=== PATIENT | female | born 1995 | race Caucasian/White ===

== ENCOUNTER 2023-01-09 17:13 | Emergency (ER) | payer MEDICARE, MEDICAID ==
[~2023-01-09] VITALS: Ht 157.5 cm; Wt 60.9 kg
--- NOTE | 2023-01-09 17:57 | NUR ---
CALLED [facility] TO FILE REPORT FOR THE CASE ,DETIALS WERE PROVIDED TO [facility] AT [id number] .MANAGER OF [employer] WILL CONTACT US WITH CASE NO .
[2023-01-09] MEDS ORDERED: azithromycin 250mg tablet PO ONE ×3 (19:10)
[2023-01-09] MEDS ORDERED: CefTRIAXone 500MG IM Kit w/LIDOcaine IM ONE (19:10)
[2023-01-09] MEDS ORDERED: dicyclomine 10 MG capsule PO ONE ×2 (20:55)
[2023-01-09 21:20] LABS: URINE HCG NEGATIVE (NEG)
[2023-01-09 21:32] LABS: URINE AMPHETAMINE SCREEN NEGATIVE (Neg); URINE BARBITUATE SCREEN NEGATIVE (Neg); URINE BENZODIAZEPINES SCREEN NEGATIVE (Neg); URINE COCAINE SCREEN NEGATIVE (Neg); URINE METHADONE SCREEN NEGATIVE (Neg); URINE OPIATE SCREEN NEGATIVE (Neg); URINE PHENCYCLIDINE SCREEN NEGATIVE (Neg)
--- NOTE | 2023-01-09 23:03 | NUR ---
STEVE Waldron completed, sti meds per MD order. Pt has IUD and declines Control. [facility] Advocate Aleshia at Bedside throughout exam. Pt given One time dose for abd pain control. Pt verbalizes understanding of DC instructions. Snack and drink provided and shower declined. Case # [id number].
[2023-01-09 23:06] VITALS: BP 135/101
== END 2023-01-09 23:09 | disposition home or self-care (01) ==
LOC: EEVIPCON 17:14 → ER 17:14
DX: T76.21XA Adult sexual abuse, suspected, initial encounter (principal); R10.9 Unspecified abdominal pain; F17.200 Nicotine dependence, unspecified, uncomplicated; G43.909 Migraine, unspecified, not intractable, without status migrainosus; Z56.0 Unemployment, unspecified; Z88.1 Allergy status to other antibiotic agents
CPT/HCPCS: 36415; 80305; 80320; 81025; 96372; 99284; J0696

== ENCOUNTER 2023-09-28 14:56 | Emergency (ER) | payer MEDICARE, MEDICAID ==
[~2023-09-28] VITALS: Ht 154.9 cm; Wt 69.9 kg
[2023-09-28 15:21] VITALS: O2SAT 100
[2023-09-28 16:08] VITALS: BP 133/96; PULSE 85
[2023-09-28 16:32] LABS: BASOPHILS % (AUTO) 0.2 % (0-1); EOSINOPHILS % (AUTO) 0.2 % (0-6); HEMOGLOBIN 14.8 g/dl (12.0-16.0); LYMPHOCYTES # (AUTO) 1.4 X10'3 (1.1-4.8); LYMPHOCYTES % (AUTO) 12.3 % (21-51); MEAN CORPUSCULAR HEMOGLOBIN 30.7 PG (27.0-31.0); MEAN CORPUSCULAR HGB CONC 34.4 g/dL (33.0-36.5); MEAN CORPUSCULAR VOLUME 89.3 FL (78-98); MEAN PLATELET VOLUME 8.8 FL (7.4-10.4); MONOCYTES # (AUTO) 1.4 X10'3 (0-0.9); MONOCYTES % (AUTO) 12.8 % (2-12); NEUTROPHILS # (AUTO) 8.4 X10'3 (1.8-7.7); NEUTROPHILS % (AUTO) 74.5 % (42-75); PLATELET COUNT 170 X10'3 (140-440); RED BLOOD COUNT 4.82 X10'6 (4.20-5.60); RED CELL DISTRIBUTION WIDTH 12.1 % (11.5-14.5); WHITE BLOOD COUNT 11.3 X10'3 (4.5-11.0)
[2023-09-28 16:41] LABS: ALANINE AMINOTRANSFERASE 16 U/L (12-78); ALBUMIN/GLOBULIN RATIO 0.6 (1.1-1.5); ALKALINE PHOSPHATASE 84 IU/L (46-116); ANION GAP 9 (8-16); ASPARTATE AMINO TRANSFERASE 20 U/L (10-37); BILIRUBIN,TOTAL 0.4 MG/DL (0.1-1.0); BLOOD UREA NITROGEN 11 MG/DL (7-18); BUN/CREATININE RATIO 12.5 (10.0-20.0); CALCIUM 8.5 MG/DL (8.5-10.1); CHLORIDE 97 MMOL/L (99-107); CREATININE 0.88 MG/DL (0.40-0.90); GLUCOSE 97 MG/DL (70-104); LIPASE 11 U/L (16-77); POTASSIUM 3.2 MMOL/L (3.5-5.1); SODIUM 133 MMOL/L (135-145); TOTAL CARBON DIOXIDE 26.6 MMOL/L (24-32); eCRCL 71 ML/MIN; eGFR 75 ML/MIN
[2023-09-28 17:02] LABS: URINE HCG NEGATIVE (NEG)
[2023-09-28 17:03] LABS: BILIRUBIN,URINE NEGATIVE (Neg); CLARITY,URINE CLOUDY (Clear); COLOR,URINE YELLOW (Yellow); GLUCOSE, URINE NEGATIVE (Neg); KETONES,URINE 15 mg/dl (Neg); LEUKOCYTE ESTERASE ,URINE TRACE (Neg); NITRITES, URINE POSITIVE (Neg); OCCULT BLOOD,URINE MODERATE (Neg); PROTEIN,URINE >=300 mg/dl (Neg)
[2023-09-28 17:08] LABS: UA COLLECTION TYPE VOIDED
[2023-09-28 17:13] LABS: SQUAMOUS EPITHELIAL CELL,UR MODERATE /LPF (FEW); WBC,URINE TNTC /HPF (0-4)
[2023-09-28 17:14] LABS: BACTERIA,URINE 3+ /HPF (Neg); RBC,URINE 0-2 /HPF (0-2); WBC CLUMPS,URINE MANY /HPF (NEGATIVE)
[2023-09-28 19:53] VITALS: TEMP 99.6
[2023-09-28] MEDS ORDERED: CefTRIAXone 1000mg IM Kit (w/lidocaine diluent) IM ONE (22:10)
[2023-09-28] MEDS ORDERED: levoFLOXACIN 250mg tablet PO ONE (22:10)
[2023-09-28] MEDS ORDERED: ondansetron 4mg rapidly disintigrating tab PO ONE (22:10)
[2023-09-28] MEDS ORDERED: LEVO-65 PO (22:11)
[2023-09-28] MEDS ORDERED: ONDA8TAB13 PO (22:11)
[2023-09-28] MEDS ORDERED: acetaminophen 325mg tablet PO ONE (22:15)
[2023-09-28 22:45] VITALS: RESP 16
== END 2023-09-28 22:55 | disposition home or self-care (01) ==
LOC: ER 14:57
DX: N10 Acute pyelonephritis (principal); H66.93 Otitis media, unspecified, bilateral; G43.909 Migraine, unspecified, not intractable, without status migrainosus; F12.90 Cannabis use, unspecified, uncomplicated; Z88.1 Allergy status to other antibiotic agents
CPT/HCPCS: 36415; 80053; 81001; 81025; 83690; 85025; 87077; 87088; 87186; 96372; 99284; J0696

== ENCOUNTER 2025-06-20 17:51 | Emergency (ER) | payer MEDICARE, MEDICAID ==
[~2025-06-20] VITALS: Ht 154.9 cm; Wt 59.1 kg
[~2025-06-20 17:51] MED LIST: ONDA-245 PO
[2025-06-20 17:56] VITALS: BP 168/69; PULSE 73; RESP 15; TEMP 98.1; O2SAT 100
[2025-06-20 19:29] LABS: URINE HCG NEGATIVE (NEG)
[2025-06-20 19:32] LABS: LEUKOCYTE ESTERASE ,URINE NEGATIVE (Neg); NITRITES, URINE NEGATIVE (Neg); OCCULT BLOOD,URINE NEGATIVE (Neg)
[2025-06-20 19:34] LABS: UA COLLECTION TYPE CLN CATCH MIDSTREAM
[2025-06-20 19:37] LABS: MEAN PLATELET VOLUME 8.9 FL (7.4-10.4); RED CELL DISTRIBUTION WIDTH 12.1 % (11.5-14.5)
[2025-06-20 19:47] LABS: CREATININE 0.84 MG/DL (0.40-0.90); TOTAL CARBON DIOXIDE 28.1 MMOL/L (24-32); eCRCL 73 ML/MIN; eGFR 79 ML/MIN
[2025-06-20] MEDS ORDERED: PANT-47 PO (20:36)
--- NOTE | 2025-06-20 20:37 | Physician Documentation ---
History of Present Illness ~ Chief Complaint: Abdominal Pain w/vomiting Stated Complaint: VOMITING Time Seen by : 20:26 Primary Medical Doctor: Bijan Eagle HPI Patient presents to the emergency room with chronic right-sided abdominal pain. She states she has had multiple investigations and imaging performed including ultrasound. She also has chronic nausea. She states Zofran has previously worked but she ran out. Bowel movements and urination reported to be normal Medication Reconciliation Allergies: Coded Allergies: amoxicillin (Verified Allergy, Unknown, 09/28/23) Uncoded Allergies: AMOXICILLAN (Allergy, Unknown, 05/10/14) Scheduled Ondansetron 8mg ODT (Ondansetron Odt), 1 TAB PO Q6H Past Medical History Past Medical History: Migraine Past Surgical History: no surgical history Alcohol Use: Other Drug Use: marijuana Lives with: Family Lives In: Home Occupation: unemployed Review of Systems ROS All review of systems negative except as per HPI Physical Exam Vital Signs: Temperature: 98.1, Heart Rate: 73, Respiratory Rate: 15, BP: 16 8/69, Pulse Oximetry: 100, Weight: 59.090 Oxygen Flow Rate: 0 Physical Exam General: Patient is awake, alert, oriented x4 in no acute distress and well appearing.~ Head: Normocephalic and atraumatic. Eyes: Conjunctival normal. EOMI. PERRL. ENT: Mucous membranes moist. Neck: Supple, trachea is midline. Chest: Clear to auscultation bilaterally without rales, rhonchi, or wheezes. There is no accessory muscle use or retractions. Cardiac: RRR without murmurs, gallops, or rubs. Abd: Soft, nondistended, nontender, with normoactive bowel sounds. No guarding, rebound, or rigidity. Progress Results/Orders Results/Orders Completed Orders - GRZEGORZ SHARPE MD Urinalysis, Cult If Indicated (06/20/25 19:14) Hcg, Ur Ql (06/20/25 19:14) Cbc/Diff (06/20/25 19:14) BMP (06/20/25 19:14) Lipase (06/20/25 19:14) CMP (06/20/25 19:14) Vital Signs 06/20/25 17:56 Temp 98.1 Pulse 73 Resp 15 B/P (MAP) 168/69 Pulse Ox 100 O2 Flow Rate 0 Laboratory Tests Test 06/20/25 18:00 06/20/25 19:21 Urine Specimen Description Cln catch midstream Urine Color Yellow Urine Clarity Clear Urine pH 6.5 Urine Specific Bertha 1.020 Urine Protein Negative Urine Glucose (UA) Negative Urine Ketones Negative Urine Occult Blood Negative Urine Nitrite Negative Urine Bilirubin Negative Urine Urobilinogen 0.2 Urine Leukocyte Esterase Negative Urine Culture Indicated Not ind Volume Urine Centrifuged 10 ml Urine HCG, Qualitative Negative Urine Comment White Blood Count 6.2 Red Blood Count 4.46 Hemoglobin 13.7 Hematocrit 39.4 Mean Corpuscular Volume 88.3 Mean Corpuscular Hemoglobin 30.7 Mean Corpuscular Hemoglobin Concent 34.8 Red Cell Distribution Width 12.1 Platelet Count 192 Mean Platelet Volume 8.9 Neutrophils (%) (Auto) 59.4 Lymphocytes (%) (Auto) 32.0 Monocytes (%) (Auto) 6.2 Eosinophils (%) (Auto) 1.9 Basophils (%) (Auto) 0.5 Neutrophils # (Auto) 3.7 Lymphocytes # (Auto) 2.0 Monocytes # (Auto) 0.4 Eosinophils # (Auto) 0.1 Basophils # (Auto) 0.0 CBC Comment Sodium Level 138 Potassium Level 3.5 Chloride Level 102 Carbon Dioxide Level 28.1 Anion Gap 8 Blood Urea Nitrogen 8 Creatinine 0.84 Estimated GFR/1.73 m2 79 BUN/Creatinine Ratio 9.5 L Glucose Level 86 Calcium Level 8.7 Total Bilirubin 0.7 Aspartate Amino Transf (AST/SGOT) 16 Alanine Aminotransferase (ALT/SGPT) 19 Alkaline Phosphatase 64 Total Protein 7.8 Albumin 3.9 Globulin 3.9 Albumin/Globulin Ratio 1.0 L Lipase 14 L Chemistry Comments Medical Decision Making Findings Patient presents to the emergency room with chronic right-sided abdominal pain. Differentials include but are not limited to cholecystitis pancreatitis gastritis diverticulitis kidney stone irritable bowel small-bowel obstruction therefore emergent labs ordered which were reassuring as well as urinalysis. As patient reports multiple investigations and imaging and he had not feel that has in patient's best interest perform CT scan as I believe the radiation exposure outweighs any benefit especially in the light of reassuring labs. Patient reports that has already had an ultrasound performed. Discussed with her that she may be suffering from biliary dyskinesia and that she needs to follow up with her doctor regarding investigation/HIDA scan. Given her nausea compound she may be suffering from gastritis from over production of acid and we will treat her empirically for this. ER precautions discussed. Departure Disposition: HOME / SELF CARE / HOMELESS Impression: Primary Impression: Acute gastritis Condition: Stable Discharge Instructions: Gastritis, Adult Referrals: NO PRIMARY CARE PROVIDER (PCP) Prescriptions Ondansetron 8mg ODT (Ondansetron Odt) 8 Mg Tab.rapdis 1 TAB PO Q6H for nausea/vomiting for 3 Days, #12 TAB 0 Refills Prov: GRZEGORZ SHARPE MD 06/20/25 Pantoprazole Sodium (PROTONIX tablet) 40 Mg Tablet.dr 1 TAB PO DAILY for 30 Days, #30 TAB 0 Refills Prov: GRZEGORZ SHARPE MD 06/20/25 Education Educated: Patient Educated regarding: diagnosis, treatment, need for follow up Signature Scribe Signature: No scribe Attestation: The note accurately reflects work and decisions made by me.Grzegorz Sharpe MD 06/20/25 20:36 GRZEGORZ SHARPE MD Jun 20, 2025 20:37
[2025-06-20] MEDS: ondansetron 4mg rapidly disintigrating tab PO ONE (20:43)
== END 2025-06-20 20:51 | disposition home or self-care (01) ==
LOC: ER 17:51
DX: K29.00 Acute gastritis without bleeding (principal); Z88.0 Allergy status to penicillin
CPT/HCPCS: 36415; 80053; 81003; 81025; 83690; 85025; 99283